=== PATIENT | female | born 1990 | race African-American/Black ===

== ENCOUNTER 2016-09-17 04:16 | Emergency (ER) | payer BC, OTHER ==
[2016-09-17 04:28] VITALS: BP 116/72; BMI 23.6
--- NOTE | 2016-09-17 04:57 | ED.ABDFE ---
HPI - Time seen Time seen: 04:55 - PCP Primary Care Physician: erika - HPI Comment HPI Comment: EPIGASTRIC PAIN RADIATING TO BACK TIMES ONE WEEK. WORSE TONIGHT. PAIN ASSOCIATED WITH NAUSEA WELL, - Complaint Chief Complaint Doctors Comments: ABDOMINAL PAIN. Chief Complaint:: epigastric pain for 1 week, nausea when i try to eat. - Nurses notes reviewed Nurses Notes Review: Yes - Source History Provided: Patient - Mode of arrival Mode of Arrival: Ambulatory - Timing Onset of Chief Complaint: 09/10/16 Came on: Gradually - Duration Duration: Constant Duration: Days - Location Location: Epigastric - Severity Severity: Moderate - Quality Quality: Sharp - Context Onset: Gradually History of: None - Modifying Worsening Factors: Nothing Improving Factors: Nothing - Associated signs and symptoms Associated Signs and Symptoms: Nausea PMH - PMH Past Medical History: No Past Surgical History: Yes Surgical History: Ortho Surgery - Family History History of Family Medical Conditions: No Family Medical History: Diabetes Mellitus - Social History Does patient currently use any type of tobacco product: No Have you used tobacco products in the last 12 months: No Type of Tobacco Use: None Does any household member use tobacco: No Alcohol Use: None Do you use any recreational Drugs:: No Lives With: Family Lives Where: Home - infectious screening Have you traveled outside the country in the last 6 months?: No Isolation: Standard ROS - Review of Systems Constitutional: No Symptoms Reported Eyes: No Symptoms Reported ENTM: No Symptoms Reported Respiratoy: No Symptoms Reported Cardiovascular: No Symptoms Reported Gastrointestinal/Abdominal: Abdominal Pain, Nausea Genitourinary: No Symptoms Reported Neurological: No Symptoms Reported Musculoskeletal: No Symptoms Reported Integumentary: No Symptoms Reported Hematologic/Lymphatic: No Symptoms Reported Endocrine: No Symptoms Reported All Other Systems: Reviewed and Negative PE - Vital Signs Vitals: Temperature 97.7 F Pulse Rate 58 Respiratory Rate 16 Blood Pressure 116/72 O2 Sat by Pulse Oximetry 99 - General Limitations: No Limitations General Appearance: Alert - Head Head Exam: Normal Inspection - Eyes Eye exam: Normal Appearance - ENT ENT Exam: Normal External Ear Exam - Neck Neck Exam: Trachea Midline. negative: Tenderness, Meningismus, Lymphadenopathy - Chest Chest Inspection: Symmetric Chest Wall Rise - Respiratory Respiratory Exam: Normal Lung Sounds Bilat Respiratory Exam: Bilateral Clear to Auscultation - Cardiovascular Cardiovascular Exam: Regular Rate, Normal Rhythm, Normal Heart Sounds - Abdominal Exam Abdominal Exam: Normal Bowel Sounds, Soft, Tenderness - Rectal Rectal Exam: Deferred - Back Back Exam: Normal Inspection - Extremeties Extremities Exam: Normal Inspection - External Exam: Female: Deferred : Speculum Exam (Female): Deferred : Bimanual Exam (female): Deferred - Neurologic Neurological Exam: Alert, Oriented X3 - Psychiatric Psychiatric Exam: Normal Affect, Normal Mood - Skin Skin Exam: Normal Color MDM - Differential Diagnosis Differential Diagnosis- Considerations may include:: Bowel Obstruction, Cholcystitis, Cholelethiasis, Constipation, Diverticular disease, Gastritus/PUD , Ovarian cyst/torsion, Urinary tract infection, Urolithiasis Course - Treatment Treatment: SEE ORDERS - Education/Counseling Education/Counseling: Patient, Education Educated On: Treatment, Diagnosis, Needs for Follow Up ROR - Labs Reviewed Laboratory Results Reviewed?: Yes Result Diagrams: 09/17/16 05:10 09/17/16 05:10 Laboratory: WBC 4.9 X10^3/uL (3.6-10.0) 09/17/16 05:10 RBC 4.46 X10^6/uL (3.5-5.4) 09/17/16 05:10 Hgb 10.6 g/dL (12.0-16.0) L 09/17/16 05:10 Hct 32.9 % (36.0-47.0) L 09/17/16 05:10 MCV 73.8 fL (80.0-100.0) L 09/17/16 05:10 MCH 23.9 pg (27.0-34.0) L 09/17/16 05:10 MCHC 32.3 g/dL (33.0-35.0) L 09/17/16 05:10 RDW 17.1 % (11.6-16.5) H 09/17/16 05:10 Plt Count 253 X10^3/uL (150.0-450.0) 09/17/16 05:10 Plt Count Comment Adequate (ADEQUATE) 09/17/16 05:10 MPV 9.3 fL (7.4-11.0) 09/17/16 05:10 Neut % 60.1 % (42.0-75.0) 09/17/16 05:10 Lymph % 30.0 % (21.0-51.0) 09/17/16 05:10 [place] % 6.4 % (0.0-13.0) 09/17/16 05:10 Eos % 2.1 % (0.9-2.9) 09/17/16 05:10 Baso % 1.4 % (0.2-1.0) H 09/17/16 05:10 Neut # 3.0 x10^3/uL (2.2-4.8) 09/17/16 05:10 Lymph # 1.5 X10^3/uL (1.3-2.9) 09/17/16 05:10 [place] # 0.3 x10^3/uL (0.3-0.8) 09/17/16 05:10 Eos # 0.1 x10^3/uL (0.0-0.2) 09/17/16 05:10 Baso # 0.1 X10^3/uL (0.0-0.1) 09/17/16 05:10 Absolute Nucleated RBC 0.0 /100WBC 09/17/16 05:10 Plt Morphology Comment Normal (NORMAL) 09/17/16 05:10 RBC Morphology Abnormal (NORMAL) A 09/17/16 05:10 Hypochromasia 1+ A 09/17/16 05:10 Microcytosis Slight A 09/17/16 05:10 Sodium 141 mmol/L (136-145) 09/17/16 05:10 Corrected Sodium TNP 09/17/16 05:10 Potassium 3.4 mmol/L (3.5-5.1) L 09/17/16 05:10 Chloride 105 mmol/L (98-107) 09/17/16 05:10 Carbon Dioxide 27.2 mmol/L (21-32) 09/17/16 05:10 BUN 9 mg/dL (7-18) 09/17/16 05:10 Creatinine 0.65 mg/dL (0.55-1.02) 09/17/16 05:10 Est GFR (MDRD) Af Amer > 60 (>60) 09/17/16 05:10 Est GFR (MDRD) Non-Af > 60 (>60) 09/17/16 05:10 Glucose 96 mg/dL (65-99) 09/17/16 05:10 Calcium 9.0 mg/dL (8.5-10.1) 09/17/16 05:10 Corrected Calcium TNP 09/17/16 05:10 Total Bilirubin 0.50 mg/dL (0.2-1.0) 09/17/16 05:10 AST 16 Units/L (15-37) 09/17/16 05:10 ALT 19 Units/L (12-78) 09/17/16 05:10 Alkaline Phosphatase 42 Units/L (46-116) L 09/17/16 05:10 Total Protein 7.2 g/dL (6.4-8.2) 09/17/16 05:10 Albumin 4.1 g/dL (3.4-5.0) 09/17/16 05:10 Globulin 3.1 g/dL (2.5-4.5) 09/17/16 05:10 Albumin/Globulin Ratio 1.3 Ratio (1.1-2.1) 09/17/16 05:10 Amylase 52 Units/L (25-115) 09/17/16 05:10 Lipase 83 Units/L (73-393) 09/17/16 05:10 HCG, Qual Negative <10 mIU/mL 09/17/16 05:10 Specimen Type Clean catch urine 09/17/16 05:03 Urine Color Yellow (YELLOW) 09/17/16 05:03 Urine Appearance Clear (CLEAR) 09/17/16 05:03 Urine pH 5.0 (5.0 - 8.0) 09/17/16 05:03 Ur Specific [place] 1.025 (1.000-1.030) 09/17/16 05:03 Urine Protein 1+ (NEGATIVE) 09/17/16 05:03 Urine Glucose (UA) Negative (NEGATIVE) 09/17/16 05:03 Urine Ketones Negative (NEGATIVE) 09/17/16 05:03 Urine Occult Blood 2+ (NEGATIVE) 09/17/16 05:03 Urine Nitrite Negative (NEGATIVE) 09/17/16 05:03 Urine Bilirubin Negative (NEGATIVE) 09/17/16 05:03 Urine Urobilinogen Normal (NORMAL) 09/17/16 05:03 Ur Leukocyte Esterase Negative (NEGATIVE) 09/17/16 05:03 Urine RBC 0-3 /HPF (NEGATIVE) 09/17/16 05:03 Urine WBC 0-3 /HPF (NEGATIVE) 09/17/16 05:03 Ur Squamous Epith Cells Moderate /HPF (NEGATIVE) 09/17/16 05:03 Urine Bacteria Negative /HPF (NEGATIVE) 09/17/16 05:03 Urine Mucus Few /HPF (NEGATIVE) 09/17/16 05:03 Ur Culture Indicated? No/not indicated 09/17/16 05:03 H. pylori IgG Antibody Positive (NEGATIVE) A 09/17/16 05:10 - XRAY XRAY Interpreted by: Self XRAY Findings: discuss normal xray with patient. - Diagnosis Discharge Problem: Helicobacter heilmannii gastritis, Helicobacter positive gastritis Abdominal pain Qualifiers: Abdominal location: upper abdomen, unspecified Qualified Code(s): R10.10 - Upper abdominal pain, unspecified - Discharge Plan Disposition: 01 HOME, SELF-CARE Condition: Stable Prescriptions: Amoxicillin-Clarithromycin W/ [PrevPac 14-day pack] 1 dose PO BID #1 pkg - Follow ups/Referrals Follow ups/Referrals: [facility],None [Primary Care Provider] - 3 days - Instructions Instructions: Gastritis, Adult, [id number], Helicobacter Pylori Antibodies Test, Abdominal Pain, Adult, [id number] Additional Instructions: RETURN TO ED IF WORSE.
[2016-09-17] MEDS ORDERED: LEVSIN/MAALOX/LIDOC VISC PO ONE (05:01)
[2016-09-17] MEDS ORDERED: LEVSIN/MAALOX/LIDOC VISC ONE (05:03)
[2016-09-17 05:25] LABS: BASOPHILS # (AUTO) 0.1 X10^3/uL (0.0-0.1); BASOPHILS % (AUTO) 1.4 % (0.2-1.0); EOSINOPHILS # (AUTO) 0.1 x10^3/uL (0.0-0.2); EOSINOPHILS % (AUTO) 2.1 % (0.9-2.9); HEMATOCRIT 32.9 % (36.0-47.0); HEMOGLOBIN 10.6 g/dL (12.0-16.0); LYMPHOCYTES # (AUTO) 1.5 X10^3/uL (1.3-2.9); MEAN CORPUSCULAR HEMOGLOBIN 23.9 pg (27.0-34.0); MEAN CORPUSCULAR HGB CONC 32.3 g/dL (33.0-35.0); MEAN CORPUSCULAR VOLUME 73.8 fL (80.0-100.0); MEAN PLATELET VOLUME 9.3 fL (7.4-11.0); MONOCYTES # (AUTO) 0.3 x10^3/uL (0.3-0.8); MONOCYTES % (AUTO) 6.4 % (0.0-13.0); NEUTROPHILS % (AUTO) 60.1 % (42.0-75.0); PLATELET COUNT 253 X10^3/uL (150.0-450.0); RED BLOOD COUNT 4.46 X10^6/uL (3.5-5.4); RED CELL DISTRIBUTION WIDTH 17.1 % (11.6-16.5); WHITE BLOOD COUNT 4.9 X10^3/uL (3.6-10.0)
[2016-09-17 05:47] LABS: BILIRUBIN,URINE NEGATIVE (NEGATIVE); BLOOD/HEMOGLOBIN,URINE 2+ (NEGATIVE); GLUCOSE, URINE NEGATIVE (NEGATIVE); KETONES,URINE NEGATIVE (NEGATIVE); LEUKOCYTE ESTERASE ,URINE NEGATIVE (NEGATIVE); NITRITES,URINE NEGATIVE (NEGATIVE); PROTEIN,URINE 1+ (NEGATIVE); UROBILINOGEN,URINE NORMAL (NORMAL)
[2016-09-17 05:49] LABS: ALANINE AMINOTRANSFERASE 19 Units/L (12-78); ALBUMIN 4.1 g/dL (3.4-5.0); ALKALINE PHOSPHATASE 42 Units/L (46-116); AMYLASE 52 Units/L (25-115); ASPARTATE AMINO TRANSFERASE 16 Units/L (15-37); BLOOD UREA NITROGEN 9 mg/dL (7-18); CARBON DIOXIDE 27.2 mmol/L (21-32); CHLORIDE 105 mmol/L (98-107); CREATININE 0.65 mg/dL (0.55-1.02); GLUCOSE 96 mg/dL (65-99); LIPASE 83 Units/L (73-393); SODIUM 141 mmol/L (136-145); TOTAL PROTEIN 7.2 g/dL (6.4-8.2); eGFR BLACK RACES > 60 (>60); eGFR NON BLACK RACES > 60 (>60)
[2016-09-17 05:57] LABS: APPEARANCE,URINE CLEAR (CLEAR); BACTERIA,URINE NEGATIVE /HPF (NEGATIVE); COLOR,URINE YELLOW (YELLOW); RBC,URINE 0-3 /HPF (NEGATIVE); SQUAMOUS EPITHELIAL CELL,UR MODERATE /HPF (NEGATIVE)
[2016-09-17 05:58] LABS: MUCUS,URINE FEW /HPF (NEGATIVE)
[2016-09-17 05:59] LABS: SERUM PREGNANCY TEST, QUAL NEGATIVE <10 mIU/mL
[2016-09-17 06:02] LABS: HYPOCHROMASIA 1+; MICROCYTOSIS SLIGHT; PLATELET MORPHOLOGY COMMENT NORMAL (NORMAL)
--- NOTE | 2016-09-17 06:52 | RAD ---
HISTORY: Pain Study: Acute abdominal series Comparison: None Findings: And upright AP view of the chest was obtained which shows no acute cardiopulmonary abnormality. Supine and upright views of the abdomen were obtained which shows a nonspecific gas pattern. No scout l stones are seen and there is no free air. The bones are intact. IMPRESSION: No abnormality seen. Reported By:
== END 2016-09-17 06:58 | disposition home or self-care (01) ==
LOC: ER 04:16
DX: R10.13 Epigastric pain (principal); B96.81 Helicobacter pylori [H. pylori] as the cause of diseases classified elsewhere
CPT/HCPCS: 36415; 74022; 80053; 81001; 82150; 83690; 84703; 85025; 86677; 99283

== ENCOUNTER 2017-02-24 18:18 | Emergency (ER) | payer BC ==
[2017-02-24 18:27] VITALS: BP 118/80; BMI 23.6
== END 2017-02-24 20:30 | disposition left against medical advice (07) ==
LOC: ER 18:32
DX: H92.02 Otalgia, left ear (principal)
CPT/HCPCS: 99281